=== PATIENT | male | born 1940 | race Two or more races ===

== ENCOUNTER 2023-08-27 05:30 | Day surgery (SDC) | payer OTHER ==
[2023-08-22 14:45] LABS: HEMATOCRIT 37.9 % (39.0-48.0); MEAN CELL VOLUME 87.5 fL (80.0-100.00); MEAN CORPUSCULAR HGB CONC 34.3 g/dl (32.0-36.0); PLATELET COUNT 172 K/uL (150-450); RED BLOOD COUNT 4.33 M/uL (4.00-6.00); RED CELL DISTRIBUTION WIDTH 14.1 % (11.5-14.5)
[2023-08-22 14:54] LABS: URINE APPEARANCE Cloudy; URINE BILIRRUBIN Small (NEGATIVE); URINE BLOOD Moderate; URINE COLOR Red; URINE GLUCOSE Negative (NEGATIVE); URINE LEUKOCYTE Moderate; URINE NITRATE Positive; URINE UROBILINOGEN 0.2 E.U./dl
[2023-08-22 14:55] LABS: URINE BACTERIA 375.4 uL (0.0-1933); URINE EPITHELIAL CELLS 6.6 uL (0.0-38.8); URINE WBC 249.6 uL (0.0-23.2)
[2023-08-22 15:07] LABS: URINE PROTEIN 100 (NEGATIVE); URINE RBC > 10558.9 uL (0.0-20.8)
[2023-08-22 15:08] LABS: URINE YEAST NEGATIVE /hpf
[2023-08-22 15:15] LABS: CALCIUM 8.9 mg/dL (8.5-10.1); CREATININE SERUM 1.01 mg/dL (0.70-1.30); GFR 70.38; POTASSIUM 4.3 mEq/L (3.5-5.1)
[2023-08-22 15:17] LABS: INR 1.09; PARTIAL THROMBOPLASTIN TIME 28.9 SECONDS (22.0-34.0); PROTHROMBIN TIME 11.4 SECONDS (9.0-11.5)
[~2023-08-27 05:30] MED LIST: RESTORIL PO; SIMVAST PO; TAMS0.4C PO; XARELTO10 MG PO
== END 2023-08-27 15:55 | disposition home or self-care (01) ==
LOC: CIR.AMB 05:30
PROVIDERS: ATTEND Urology
DX: C67.9 Malignant neoplasm of bladder, unspecified (principal); R31.0 Gross hematuria; Z88.2 Allergy status to sulfonamides; Z88.1 Allergy status to other antibiotic agents; Z20.822 Contact with and (suspected) exposure to COVID-19; E78.5 Hyperlipidemia, unspecified; I51.9 Heart disease, unspecified

== ENCOUNTER 2023-09-01 07:45 | Emergency (ER) | payer OTHER ==
[~2023-09-01] VITALS: Ht 185.4 cm; Wt 63.5 kg
[2023-09-01] MEDS ORDERED: KEPPRA500 MG (08:09)
[2023-09-01 09:32] LABS: HEMATOCRIT 33.2 % (39.0-48.0); HEMOGLOBIN 11.5 g/dL (13-16.00); MEAN CELL VOLUME 86.8 fL (80.0-100.00); MEAN CORPUSCULAR HEMOGLOBIN 30.2 pg (27.00-32.0); MEAN CORPUSCULAR HGB CONC 34.8 g/dl (32.0-36.0); PLATELET COUNT 327 K/uL (150-450); RED BLOOD COUNT 3.82 M/uL (4.00-6.00); RED CELL DISTRIBUTION WIDTH 13.9 % (11.5-14.5)
[2023-09-01 09:41] LABS: ALBUMIN 2.9 gm/dL (3.4-5.0); BILIRUBIN TOTAL 0.67 mg/dL (0.3-1.2); CALCIUM 9.2 mg/dL (8.5-10.1); CREATININE SERUM 1.06 mg/dL (0.70-1.30); GFR 66.56; GLOBULINA 4.7 G/DL (2.4-3.5); POTASSIUM 4.11 mEq/L (3.5-5.1); TOTAL PROTEIN 7.6 gm/dL (6.4-8.2)
[2023-09-01 10:03] LABS: PH,URINE 6.5 (5.0-8.0); URINE APPEARANCE Turbid; URINE BILIRRUBIN Small (NEGATIVE); URINE BLOOD Large; URINE COLOR Red; URINE GLUCOSE Negative (NEGATIVE); URINE LEUKOCYTE Moderate; URINE NITRATE Negative
[2023-09-01 10:33] LABS: URINE PROTEIN 100 (NEGATIVE); URINE RBC LOADED /HPF
[2023-09-01 10:35] LABS: URINE BACTERIA MODERATE; URINE MUCUS SCANT
[2023-09-01 10:36] LABS: URINE WBC 0-2 /hpf
[2023-09-01 10:41] LABS: INR 1.37; PROTHROMBIN TIME 14.1 SECONDS (9.0-11.5)
== END 2023-09-01 11:35 | disposition home or self-care (01) ==
LOC: ER 07:45
PROVIDERS: General Practice
DX: N39.0 Urinary tract infection, site not specified (principal); Z88.2 Allergy status to sulfonamides